=== PATIENT | female | born 1995 | race Caucasian/White ===

== ENCOUNTER 2025-07-17 01:18 | Emergency (ER) | payer BC ==
[2025-07-17 01:39] LABS: Bacteria/HPF Rare-Few HPF (None Seen); CAUTI Indications for Culture Dysuria,urgency,freq; Glucose, Urine (Dipstick) Negative (Negative); Leukocyte Negative (Negative); Protein, Urine (Dipstick) Negative (Neg-Trace); RBC/HPF 0-3 HPF (0-3); Specific Gravity, Urine Greater/Equal 1.030 (1.005-1.030); WBC/HPF 0-3 HPF (0-3)
[2025-07-17 01:40] LABS: Urine Culture Reflex No No
[2025-07-17] MEDS ORDERED: Benzonatate 100 MG CAP ONE (01:52)
== END 2025-07-17 02:30 | disposition home or self-care (01) ==
LOC: MADERS 01:18
DX: U07.1 COVID-19 (principal)
CPT/HCPCS: 71045; 81001; 93005; J7620

== ENCOUNTER 2025-10-18 23:08 | Emergency (ER) | payer BC ==
[2025-10-18] MEDS ORDERED: Lidocaine Viscous Sol 2% 15 ml UD Cup ONE (23:25)
[2025-10-18] MEDS ORDERED: Mag-Al 1200 mg/1200 mg/30 ML UDCUP ONE (23:25)
== END 2025-10-19 00:05 | disposition home or self-care (01) ==
LOC: MADERS 23:08
DX: R13.10 Dysphagia, unspecified (principal)
CPT/HCPCS: 99283

== ENCOUNTER 2025-10-20 01:01 | Emergency (ER) | payer BC ==
[2025-10-20 01:18] LABS: Pregnancy Test - Urine (BHCG) Negative (Negative); Pregu Control Background? CLEAR/WHITE (CLR/WHITE); Pregu Control Bar Appear? YES (CONTROL BAR)
[2025-10-20 01:22] LABS: Bacteria/HPF Rare-Few HPF (None Seen); CAUTI Indications for Culture Pelvic or flank pain; Glucose, Urine (Dipstick) Negative (Negative); Leukocyte Negative (Negative); Protein, Urine (Dipstick) Negative (Neg-Trace); RBC/HPF 0-3 HPF (0-3); Specific Gravity, Urine 1.015 (1.005-1.030); Urine Culture Reflex No No; WBC/HPF 0-3 HPF (0-3)
[2025-10-20 01:39] LABS: Cocaine Metabolite Screen Negative (Negative); THC/Cannabinoid Screen Negative (Negative); Tricyclic Screen Negative (Negative)
[2025-10-20] MEDS ORDERED: Ketorolac Tromethamine 30 MG (1 mL) VIAL ONE (01:47)
[2025-10-20 01:52] LABS: #Basophils 0.1 thou/uL (0.0-0.2); #Eosinophils 0.0 thou/uL (0.0-0.7); #Lymphocytes 1.2 thou/uL (1.20-3.40); #Monocytes 0.9 thou/uL (0.11-0.59); #Neutrophils 6.5 thou/uL (1.40-6.50); %Basophils 0.6 % (0.0-1.0); %Eosinophils 0.1 % (0.0-10.0); %Lymphocytes 14.1 % (21.0-51.0); %Monocytes 10.4 % (0.0-10.0); %Neutrophils 74.8 % (42.0-75.0); Hematocrit 35.9 % (36.0-47.0); Hemoglobin 11.8 g/dL (12.0-16.0); Mean Corpuscular Hemoglobin 28.3 pg (27.0-31.0); Mean Corpuscular Volume 86.0 fl (78.0-98.0); Platelet Count 251 10x3/uL (130-400); Red Blood Cell (RBC) Count 4.17 mill/uL (4.20-5.40); White Blood Cell (WBC) Count 8.7 10x3/uL (4.8-10.8)
[2025-10-20 02:10] LABS: ALT (SGPT) 12 U/L (Less than 34); AST (SGOT) 20 U/L (11-34); Albumin 4.0 g/dL (3.1-4.5); Alkaline Phosphatase 53 U/L (40-110); Anion Gap 13 mmol/L (10-20); BUN (Urea Nitrogen) 11 mg/dL (7.0-18.7); Bilirubin, Total 0.8 mg/dL (0.3-1.2); Calc. Creatinine Clearance 0 mL/min (70-130); Calcium 8.7 mg/dL (7.8-10.44); Carbon Dioxide 21 mmol/L (22-29); Chloride 108 mmol/L (98-107); Globulin 2.6 g/dL (2.4-3.5); Glucose 105 mg/dL (70-105); Lipase 9 U/L (8-78); Magnesium 2.0 mg/dL (1.6-2.6); Potassium 3.6 mmol/L (3.5-5.1); Sodium 138 mmol/L (136-145)
== END 2025-10-20 03:20 | disposition home or self-care (01) ==
LOC: MADERS 01:01
DX: E86.0 Dehydration (principal); F41.9 Anxiety disorder, unspecified; K59.00 Constipation, unspecified; F31.9 Bipolar disorder, unspecified
CPT/HCPCS: 74177; 80053; 80306; 81001; 81025; 83690; 83735; 84443; 85025; 96361; 96374; J1885; J7030